=== PATIENT | male | born 1945 | race Two or more races ===

== ENCOUNTER 2022-06-08 10:28 | Emergency (ER) | payer OTHER ==
[~2022-06-08] VITALS: Ht 170.2 cm; Wt 77.1 kg
[~2022-06-08 10:28] MED LIST: ATENOLOL50 MG
[2022-06-08] MEDS ORDERED: METOPROLOL SUCC25 MG PO (10:44)
[2022-06-08] MEDS ORDERED: SINEMET 10-1001 EACH PO (10:44)
[2022-06-08] MEDS ORDERED: NORVASC2.5 MG PO (10:44)
[2022-06-08] MEDS ORDERED: MIRAPEX0.125 MG PO (10:45)
[2022-06-08] MEDS ORDERED: CARBIDOPA-LEVO1 EA12 PO (10:45)
== END 2022-06-08 16:30 | disposition home or self-care (01) ==
LOC: ER 10:28
DX: N39.0 Urinary tract infection, site not specified (principal); N20.0 Calculus of kidney; Z20.822 Contact with and (suspected) exposure to COVID-19; Z88.0 Allergy status to penicillin

== ENCOUNTER 2023-07-16 12:02 | Emergency (ER) | payer OTHER ==
[~2023-07-16] VITALS: Ht 170.2 cm; Wt 74.8 kg
[~2023-07-16 12:02] MED LIST changes: +CARBIDOPA-LEVO1 EA12 PO; +METOPROLOL SUCC25 MG PO; +MIRAPEX0.125 MG PO; +NORVASC2.5 MG PO; +SINEMET 10-1001 EACH PO
[2023-07-16] MEDS ORDERED: MANNXTRA300 GM PO (13:01)
[2023-07-16] MEDS ORDERED: SLOW-MAG64 M1 PO (13:02)
[2023-07-16] MEDS ORDERED: FERROCITE324 MG PO (13:02)
[2023-07-16] MEDS ORDERED: CLARITIN10 M1 PO (13:02)
[2023-07-16] MEDS ORDERED: PRILOSEC OTC20 MG PO (13:03)
[2023-07-16] MEDS ORDERED: MIDODRINE HCL2.5 MG PO (13:03)
[2023-07-16] MEDS ORDERED: DICLOFENAC SODI50 MG PO (18:02)
[2023-07-16] MEDS ORDERED: NORFLEX100MG PO (18:02)
[2023-07-16] MEDS ORDERED: NEURONTIN300 MG PO (18:05)
== END 2023-07-16 18:21 ==
LOC: ER 12:02
DX: M79.604 Pain in right leg (principal); Z88.0 Allergy status to penicillin
CPT/HCPCS: 72100; 96372; 99283; J1885; J2360